=== PATIENT | female | born 1965 | race Caucasian/White ===

== ENCOUNTER 2017-12-11 23:30 | Inpatient (IN) | payer OTHER ==
[2017-12-12] MEDS ORDERED: LEVALBUTEROL (NEB) 0.63 MG/3 ML AMP HHN (01:00)
[2017-12-12] MEDS ORDERED: ONDANSETRON 4 MG INJ IV (01:00)
[2017-12-12] MEDS: PROPRANOLOL 10 MG TAB PO ×2 (01:14→08:26)
[2017-12-12] MEDS: METHIMAZOLE 5 MG TAB PO ×2 (01:14→08:28)
[2017-12-12] MEDS: NITROGLYCERIN (SL) 0.4 MG TAB SL ×2 (01:15→01:22)
[2017-12-12] MEDS: morphine 2 MG INJ IV ×5 (01:24→21:41)
[2017-12-12 01:37] LABS: ADD MAN DIFF? NO
[2017-12-12 01:39] LABS: WHITE BLOOD COUNT 4.2 10^3/ul (4.8-10.8)
[2017-12-12 01:39] LABS: BASOPHILS % 0.2 % (0.0-2.0); EOSINOPHILS # 0.3 10^3/ul (0.0-0.5); EOSINOPHILS % 6.8 % (0.0-7.0); HEMATOCRIT 37.4 % (37.0-47.0); HEMOGLOBIN 12.2 g/dl (12.0-16.0); LYMPHOCYTES # 1.8 10^3/ul (0.8-2.9); LYMPHOCYTES % 42.2 % (15.0-51.0); MEAN CORPUSCULAR HEMOGLOBIN 25.8 pg (29.0-33.0); MEAN CORPUSCULAR HGB CONC 32.6 g/dl (32.0-37.0); MEAN CORPUSCULAR VOLUME 79.2 fl (82.0-101.0); MEAN PLATELET VOLUME 12.6 fl (7.4-10.4); MONOCYTE # 0.6 10^3/ul (0.3-0.9); MONOCYTES % 14.2 % (0.0-11.0); NEUTROPHIL # 1.5 10^3/ul (1.6-7.5); NEUTROPHILS % 36.4 % (39.0-77.0); PLATELET COUNT 191 10^3/UL (140-415); RED BLOOD COUNT 4.72 10^6/ul (4.20-5.40); RED CELL DISTRIBUTION WIDTH 14.3 % (11.5-14.5)
[2017-12-12 02:01] LABS: ALANINE AMINOTRANSFERASE 46 IU/L (13-69); ALBUMIN 3.2 g/dl (3.3-4.9); ALBUMIN/GLOBULIN RATIO 1.06; ALKALINE PHOSPHATASE 109 IU/L (42-121); ANION GAP 12 (8-16); ASPARTATE AMINO TRANSFERASE 32 IU/L (15-46); BLOOD UREA NITROGEN 24 mg/dl (7-20); CALCIUM 8.6 mg/dl (8.4-10.2); CARBON DIOXIDE 25 mmol/L (21-31); CHLORIDE 110 mmol/L (97-110); CREATININE 0.32 mg/dl (0.44-1.00); GLUCOSE 108 mg/dl (70-220); MAGNESIUM 1.5 mg/dl (1.7-2.5); PHOSPHORUS 4.7 mg/dl (2.5-4.9); POTASSIUM 3.7 mmol/L (3.5-5.1); SODIUM 143 mmol/L (135-144); TOTAL PROTEIN 6.2 g/dl (6.1-8.1)
[2017-12-12 02:21] LABS: FREE T4 (FREE THYROXINE) > 6.99 ng/dl (0.64-1.79)
[2017-12-12 02:32] LABS: THYROID STIMULATING HORMONE < 0.015 MIU/L (0.465-4.680)
[2017-12-12] MEDS ORDERED: DEXAMETHASONE 2 MG TAB PO ×2 (04:45→05:00)
[2017-12-12] MEDS: SOD CHLORIDE 0.9% 1,000 ML IV ×3 (04:50→20:26)
[2017-12-12] MEDS: DEXAMETHASONE 2 MG TAB PO ×4 (04:51→23:34)
[2017-12-12] MEDS: HEPARIN 5,000 UNIT/0.5 ML VIAL SC ×2 (08:28→20:31)
[2017-12-12] MEDS: LORAZEPAM 1 MG TAB PO ×2 (11:12→20:26)
[2017-12-12] MEDS: PROPRANOLOL 20 MG TAB PO ×3 (13:16→20:27)
[2017-12-12] MEDS ORDERED: LITHIUM CARBONATE 300 MG CAP PO (14:00)
[2017-12-12] MEDS: LITHIUM CARBONATE 150 MG CAP PO ×2 (15:46→20:27)
[2017-12-12] MEDS: MAGNESIUM SULFATE 2 GM/50 ML 50 ML IVPB (21:41)
[2017-12-13] MEDS: SOD CHLORIDE 0.9% 1,000 ML IV ×2 (02:05→05:46)
[2017-12-13] MEDS: DEXAMETHASONE 2 MG TAB PO (05:42)
[2017-12-13] MEDS: LITHIUM CARBONATE 150 MG CAP PO ×2 (08:18→12:46)
[2017-12-13] MEDS: PROPRANOLOL 20 MG TAB PO ×2 (08:19→12:47)
[2017-12-13] MEDS: HEPARIN 5,000 UNIT/0.5 ML VIAL SC (08:19)
[2017-12-13] MEDS: morphine 2 MG INJ IV (09:15)
== END 2017-12-13 14:16 | disposition home or self-care (01) | DRG 644 ==
LOC: MS4 23:30
PROVIDERS: Internal Medicine
DX: E05.00 Thyrotoxicosis with diffuse goiter without thyrotoxic crisis or storm (principal); Z68.1 Body mass index [BMI] 19.9 or less, adult; J44.9 Chronic obstructive pulmonary disease, unspecified; F32.9 Major depressive disorder, single episode, unspecified; F41.9 Anxiety disorder, unspecified; F29 Unspecified psychosis not due to a substance or known physiological condition; F15.10 Other stimulant abuse, uncomplicated; F17.210 Nicotine dependence, cigarettes, uncomplicated; R63.4 Abnormal weight loss; Z98.51 Tubal ligation status
CPT/HCPCS: 76536; 80053; 83735; 84100; 84439; 84443; 85025; 87081

== ENCOUNTER 2018-03-26 00:32 | Emergency (ER) | payer OTHER ==
[2018-03-26 01:01] LABS: ADD MAN DIFF? NO
[2018-03-26 01:06] LABS: WHITE BLOOD COUNT 6.7 10^3/ul (4.8-10.8)
[2018-03-26 01:06] LABS: BASOPHILS % 0.1 % (0.0-2.0); EOSINOPHILS # 0.2 10^3/ul (0.0-0.5); EOSINOPHILS % 3.1 % (0.0-7.0); HEMATOCRIT 39.2 % (37.0-47.0); HEMOGLOBIN 12.6 g/dl (12.0-16.0); LYMPHOCYTES # 1.8 10^3/ul (0.8-2.9); LYMPHOCYTES % 26.2 % (15.0-51.0); MEAN CORPUSCULAR HEMOGLOBIN 25.7 pg (29.0-33.0); MEAN CORPUSCULAR HGB CONC 32.1 g/dl (32.0-37.0); MEAN PLATELET VOLUME 11.8 fl (7.4-10.4); MONOCYTE # 0.8 10^3/ul (0.3-0.9); NEUTROPHIL # 3.9 10^3/ul (1.6-7.5); NEUTROPHILS % 58.3 % (39.0-77.0); PLATELET COUNT 215 10^3/UL (140-415); RED CELL DISTRIBUTION WIDTH 13.7 % (11.5-14.5)
[2018-03-26 01:26] LABS: ANION GAP 13 (8-16); BLOOD UREA NITROGEN 16 mg/dl (7-20); CALCIUM 9.1 mg/dl (8.4-10.2); CARBON DIOXIDE 29 mmol/L (21-31); CHLORIDE 103 mmol/L (97-110); CREATININE 0.31 mg/dl (0.44-1.00); GLUCOSE 114 mg/dl (70-220); POTASSIUM 3.9 mmol/L (3.5-5.1); SODIUM 141 mmol/L (135-144)
[2018-03-26 01:38] LABS: TROPONIN-I < 0.010 ng/ml (0.000-0.120)
[2018-03-26] MEDS: METHIMAZOLE 5 MG TAB PO (01:53)
[2018-03-26] MEDS: PROPRANOLOL 10 MG TAB PO (01:55)
[2018-03-26 03:03] LABS: BARBITURATES Negative (NEGATIVE); BENZODIAZEPINES Negative (NEGATIVE); CANNABINOIDS Positive (NEGATIVE); COCAINE Negative (NEGATIVE); OPIATES Negative (NEGATIVE)
[2018-03-26 03:28] LABS: AMPHETAMINE/METHAMPHETAMINE Positive (NEGATIVE)
== END 2018-03-26 04:26 | disposition home or self-care (01) ==
LOC: E/R 00:32
DX: J40 Bronchitis, not specified as acute or chronic (principal); F15.10 Other stimulant abuse, uncomplicated; J44.9 Chronic obstructive pulmonary disease, unspecified; F17.210 Nicotine dependence, cigarettes, uncomplicated
CPT/HCPCS: 36415; 71045; 80048; 80307; 81025; 84484; 85025; 93005; 99285-25

== ENCOUNTER 2019-02-21 22:35 | Emergency (ER) | payer OTHER ==
[2019-02-21] MEDS: morphine 2 MG INJ IV (23:51)
[2019-02-21] MEDS: SODIUM CHLORIDE 0.9% 1L BAG IV* (23:51)
[2019-02-21] MEDS: ONDANSETRON 4 MG INJ IV (23:51)
[2019-02-21] MEDS: LEVOFLOXACIN 500MG/D5W (PMX) 100 ML IVPB (23:51)
[2019-02-21 23:55] LABS: ADD MAN DIFF? NO
[2019-02-21 23:58] LABS: WHITE BLOOD COUNT 4.3 10^3/ul (4.8-10.8)
[2019-02-21 23:58] LABS: BASOPHILS % 0.2 % (0.0-2.0); EOSINOPHILS # 0.4 10^3/ul (0.0-0.5); EOSINOPHILS % 9.6 % (0.0-7.0); HEMOGLOBIN 13.7 g/dl (12.0-16.0); LYMPHOCYTES # 1.2 10^3/ul (0.8-2.9); LYMPHOCYTES % 27.3 % (15.0-51.0); MEAN CORPUSCULAR HEMOGLOBIN 25.8 pg (29.0-33.0); MEAN CORPUSCULAR HGB CONC 31.9 g/dl (32.0-37.0); MEAN PLATELET VOLUME 12.1 fl (7.4-10.4); MONOCYTE # 0.4 10^3/ul (0.3-0.9); MONOCYTES % 9.9 % (0.0-11.0); NEUTROPHIL # 2.2 10^3/ul (1.6-7.5); NEUTROPHILS % 52.8 % (39.0-77.0); PLATELET COUNT 222 10^3/UL (140-415); RED BLOOD COUNT 5.31 10^6/ul (4.20-5.40); RED CELL DISTRIBUTION WIDTH 13.1 % (11.5-14.5)
[2019-02-22 00:07] LABS: ADD UMIC YES; UR ASCORBIC ACID NEGATIVE (NEGATIVE); UR BILIRUBIN (Dip) NEGATIVE (NEGATIVE); UR BLOOD (Dip) 1+ mg/dL (NEGATIVE); UR CLARITY CLOUDY (CLEAR); UR COLOR YELLOW (YELLOW); UR GLUCOSE (Dip) NEGATIVE (NEGATIVE); UR KETONES (Dip) NEGATIVE (NEGATIVE); UR LEUKOCYTE ESTERASE (Dip) NEGATIVE Leu/ul (NEGATIVE); UR NITRITE (Dip) NEGATIVE (NEGATIVE); UR RBC 3 /HPF (0-5); UR SPECIFIC GRAVITY (Dip) 1.016 (1.003-1.030); UR SQUAMOUS EPITHELIAL CELL MANY /HPF (FEW); UR TOTAL PROTEIN (Dip) NEGATIVE (NEGATIVE); UR UROBILINOGEN (Dip) NEGATIVE (NEGATIVE); UR WBC 2 /HPF (0-5)
[2019-02-22 00:08] LABS: UR BACTERIA FEW /HPF (NONE SEEN); UR MUCUS FEW /HPF (NONE SEEN)
[2019-02-22 00:30] LABS: ALANINE AMINOTRANSFERASE 26 IU/L (13-69); ALBUMIN 3.9 g/dl (3.3-4.9); ALBUMIN/GLOBULIN RATIO 1.11; ALKALINE PHOSPHATASE 175 IU/L (42-121); ANION GAP 13 (5-13); ASPARTATE AMINO TRANSFERASE 31 IU/L (15-46); BILIRUBIN,INDIRECT 0.4 mg/dl (0-1.1); BILIRUBIN,TOTAL 0.4 mg/dl (0.2-1.3); BLOOD UREA NITROGEN 18 mg/dl (7-20); CARBON DIOXIDE 30 mmol/L (21-31); CHLORIDE 101 mmol/L (97-110); Estimated GFR > 60 mL/min (>60); GLUCOSE 103 mg/dl (70-220); POTASSIUM 3.7 mmol/L (3.5-5.1); SODIUM 144 mmol/L (135-144); TOTAL PROTEIN 7.4 g/dl (6.1-8.1)
[2019-02-22] MEDS: SOD CHLORIDE 0.9% 100 ML (01:09)
[2019-02-22] MEDS: IOHEXOL 300MG/ML 150 ML BTL (01:09)
[2019-02-22] MEDS: METOCLOPRAMIDE 10 MG INJ IV (02:48)
[2019-02-22] MEDS: KETOROLAC 15 MG INJ IV (02:48)
== END 2019-02-22 04:20 | disposition home or self-care (01) ==
LOC: E/R 22:35
DX: K52.9 Noninfective gastroenteritis and colitis, unspecified (principal); R30.0 Dysuria; J44.9 Chronic obstructive pulmonary disease, unspecified; F17.210 Nicotine dependence, cigarettes, uncomplicated
CPT/HCPCS: 36415; 74177; 80053; 81001; 83605; 85025; 87040-91; 87086; 96374; 96375; 99285-25